=== PATIENT | male | born 1985 | race Two or more races ===

== ENCOUNTER 2019-06-10 10:43 | Emergency (ER) | payer SELFPAY ==
[~2019-06-10] VITALS: Ht 167.6 cm; Wt 76.0 kg
[2019-06-10 10:56] VITALS: BP 127/79
== END 2019-06-10 12:17 | disposition home or self-care (01) ==
LOC: ER 10:43
DX: G47.20 Circadian rhythm sleep disorder, unspecified type (principal); J00 Acute nasopharyngitis [common cold]; R05 Cough
CPT/HCPCS: 99282